=== PATIENT | female | born 1990 | race Caucasian/White ===

== ENCOUNTER 2017-01-31 22:42 | Emergency (ER) | payer BC ==
[~2017-01-31] VITALS: Ht 167.6 cm; Wt 59.0 kg
[2017-01-31] MEDS ORDERED: SULFAMETH/TRIMETH 800/160 MG TABLET PO ONE (23:15)
--- NOTE | 2017-01-31 23:20 | NUR ---
Pt to room c/o right foot swelling, warmth and pain. Pt seen by MD. Pt stable for discharge per MD. Pt and family given ACI. Both verbalized understanding of dc instructions. Pt ambulated out of er with steady gait.
[2017-01-31] MEDS ORDERED: SULFAMETH/TRIMETH 800/160 MG TABLET ONE (23:21)
[2017-02-01 00:33] VITALS: BP 101/67
== END 2017-01-31 23:20 | disposition home or self-care (01) ==
LOC: ER 22:44
DX: S90.861A Insect bite (nonvenomous), right foot, initial encounter (principal); L08.9 Local infection of the skin and subcutaneous tissue, unspecified; W57.XXXA Bitten or stung by nonvenomous insect and other nonvenomous arthropods, initial encounter; Y93.89 Activity, other specified; Y92.89 Other specified places as the place of occurrence of the external cause; Y99.8 Other external cause status
CPT/HCPCS: A4663